=== PATIENT | male | born 2000 | race Caucasian/White ===

== ENCOUNTER → 2021-12-01 | Outpatient (CLI) | payer OTHER | LOC: LAB 16:14 | DX: J01.90 Acute sinusitis, unspecified (principal); Z20.822 Contact with and (suspected) exposure to COVID-19 ==

== ENCOUNTER 2022-03-17 23:31 | Emergency (ER) | payer OTHER ==
[~2022-03-17] VITALS: Ht 185.4 cm; Wt 85.5 kg
[2022-03-17] MEDS ORDERED: MUPIROCIN2% TP (23:57)
[2022-03-18] MEDS ORDERED: PREDNISONE10 MG PO (00:28)
[2022-03-18 00:37] VITALS: BP 135/75
== END 2022-03-18 00:38 | disposition home or self-care (01) ==
LOC: ED 23:31
DX: L01.00 Impetigo, unspecified (principal); L25.9 Unspecified contact dermatitis, unspecified cause